=== PATIENT | female | born 1995 | race African-American/Black ===

== ENCOUNTER 2017-12-10 11:18 | Emergency (ER) | payer OTHER ==
--- NOTE | 2017-12-10 12:55 | ED ---
Skin Complaint - HPI Summary HPI Summary: Pt. is a 22 y.o female who presents to the ER for pruritic rash possibly secondary to doxycycline. Pt. is a student at . Pt. states she went to the clinic for lower abd. pain 12/07 and was tested for STIs. She was prophylactically treated with rocephin and started on doxy. Pt. states she had no rxn to rocephin. She notes after she took first initial does in the evening she felt itchy and had chest pressure. Pt. took second dose the following morning and broke out in a pruritic diffuse rash. Pt. states rash looked like hives and was improved with benadryl but returned the following day. Pt. denies past medical hx. She denies known allergies. Today she denies facial or mouth swelling, difficulty breathing, chest pain. Symptoms are mild in severity. No current modifying factors. - History of Current Complaint Chief Complaint: EDAllergicReaction Time Seen by Provider: 12/10/17 12:54 Stated Complaint: POSS ALLERGIC RXN Hx Obtained From: Patient Pain Intensity: 0 - Allergy/Home Medications Allergies/Adverse Reactions: Allergies Allergy/AdvReac Type Severity Reaction Status Date / Time doxycycline Allergy Severe Hives Verified 12/10/17 11:36 PMH/Surg Hx/FS Hx/Imm Hx Previously Healthy: Yes Infectious Disease History: No Infectious Disease History: Denies: Traveled Outside the [place] in Last 30 Days - Social History Occupation: Student Lives: Dormitory/Roommates Alcohol Use: Rare Substance Use Type: Reports: Marijuana Smoking Status (MU): Never Smoked Tobacco Review of Systems Cardiovascular: Negative Respiratory: Negative Positive: Rash All Other Systems Reviewed And Are Negative: Yes Physical Exam Triage Information Reviewed: Yes Vital Signs On Initial Exam: Initial Vitals Temp Pulse Resp BP Pulse Ox 99.2 F 78 14 144/88 100 12/10/17 11:29 12/10/17 11:29 12/10/17 11:29 12/10/17 11:29 12/10/17 11:29 Vital Signs Reviewed: Yes Appearance: Positive: Well-Appearing - Pt. sitting on bed in NAD. Pleasant. Skin: Positive: Warm, Dry, Other - Diffuse small macular rash noted to trunk, arms and face. No blisters or vesicles. Negative Nikolsky sign. No mucosal involvement. Head/Face: Positive: Normal Head/Face Inspection Eyes: Positive: Normal, EOMI, Conjunctiva Clear ENT: Positive: Pharynx normal, Other - No facial or mouth edema Neck: Positive: Supple Respiratory/Lung Sounds: Positive: Clear to Auscultation, Breath Sounds Present Cardiovascular: Positive: Normal, RRR Neurological: Positive: Normal, CN Intact II-III Psychiatric: Positive: Affect/Mood Appropriate Diagnostics - Vital Signs Vital Signs Temp Pulse Resp BP Pulse Ox 12/10/17 11:29 99.2 F 78 14 144/88 100 - Laboratory Lab Statement: Any lab studies that have been ordered have been reviewed, and results considered in the medical decision making process. Course/Dx - Course Course Of Treatment: Pt. presening with diffuse pruritic rash after taking 2 doses of doxy. She is well appearing without signs of anaphylaxis. Will start on a course of prednisone, pepcid and antihistamine. To dc doxy. Pt. states she notified her health clinic of rxn and they wanted to switch to zithromax but pt. wishes to wait until cultures return. Advised to f.u with [facility] on Monday. To return to ER if sxs change or worsen. Pt. understands and agrees with plan. - Differential Diagnoses - Skin Complaint Differential Diagnoses: Allergic Reaction, Anaphylaxis, Cellulitis, Contact Dermatitis - Diagnoses Provider Diagnoses: Drug allergy, Rash Discharge - Sign-Out/Discharge Documenting (check all that apply): Patient Departure - Discharge Plan Condition: Good Disposition: HOME Prescriptions: Famotidine TAB* [Pepcid 20 MG TAB*] 20 mg PO DAILY #7 tab predniSONE TAB* [Deltasone 20 MG TAB*] 40 mg PO DAILY 5 Days #10 tab Patient Education Materials: Urticaria (ED), Antibiotic Medication Allergy (ED) Referrals: No Primary Care Phys,NOPCP [Primary Care Provider] - Additional Instructions: Schedule a follow up appointment with the [facility] Take medications as directed Also take either benadryl or Zyrtec as directed Stop taking doxycycline Also discuss with [facility] your recent test results and if you need a different antibiotic Return to ER if symptoms change or worsen - Billing Disposition and Condition Condition: GOOD Disposition: Home
[2017-12-10 13:39] VITALS: BP 112/70
== END 2017-12-10 13:28 | disposition home or self-care (01) ==
LOC: ED 11:18
DX: L27.0 Generalized skin eruption due to drugs and medicaments taken internally (principal); T36.4X5A Adverse effect of tetracyclines, initial encounter; Y92.9 Unspecified place or not applicable; Z88.3 Allergy status to other anti-infective agents
CPT/HCPCS: 99282